=== PATIENT | female | born 1975 | race Caucasian/White ===

== ENCOUNTER 2025-10-26 12:28 | Outpatient (CLI) | payer BC ==
--- NOTE | 2025-10-26 13:42 | RADIOLOGY REPORT ---
CLINICAL INFORMATION: RADICULOPATHY, LUMBAR REGION. TECHNIQUE: Multisequence multiplanar MRI images of the lumbar spine were obtained without contrast. COMPARISON: None INTERPRETATION: Examination is limited due to motion artifact and other artifacts. Increased lumbar lordosis. There is up to 5 mm retrolisthesis of L1 on L2 and 3 mm retrolisthesis of L2 on L3. Vertebral body heights are maintained. Posterior elements appear grossly intact. Stir hyperintense signal in the L1 through L5 vertebral bodies, may be due to a combination of modic type 1 degenerative endplate changes and stress related changes/stress injury. No visualized fracture. Visualized spinal cord and cauda equina are within normal limits. The conus medullaris is appropriate in signal at the L1 level. There is moderate to marked fatty atrophy of the paraspinal musculature in the lumbosacral spine. There are cystic structures in the left ovary measuring up to 1.4 cm. T12-L1: Disc desiccation with moderate disc space narrowing and diffuse disc bulge mildly indenting the ventral aspect of the thecal sac without significant spinal canal stenosis. No significant neural foraminal stenosis. L1-L2: Disc desiccation with severe disc space narrowing. Mild diffuse disc bulge mildly flattening the ventral aspect of the thecal sac. No significant spinal canal stenosis. Facet hypertrophy with mild left neural foraminal stenosis. Small left facet joint effusion also noted. L2-L3: Disc desiccation with moderate to severe disc space narrowing and diffuse disc bulge causing moderate spinal canal stenosis and partial effacement of the lateral recesses. There is congenital spinal canal narrowing contributing to the spinal canal stenosis at this level. Facet hypertrophy with no significant neural foraminal stenosis. L3-L4: Disc desiccation with severe disc space narrowing and diffuse disc bulge superimposed on congenital spinal canal narrowing, contributing to moderate spinal canal stenosis and partial effacement of the lateral recesses. Facet hypertrophy with moderate bilateral neural foraminal stenoses. L4-L5: Disc desiccation with moderate to severe disc space narrowing and diffuse disc bulge with [id number] spinal canal stenosis. There is a degree of congenital spinal canal narrowing contributing to the spinal canal stenosis. Facet hypertrophy with moderate right and mild left neural foraminal stenoses. L5-S1: Disc desiccation. There is mild congenital spinal canal stenosis. No significant disc bulge. No significant neural foraminal stenosis. IMPRESSION: 1. Limited examination due to the reasons described above. 2. Degenerative disc disease and facet disease in the lumbar spine with associated spinal canal, subarticular, and neural foraminal stenoses as described above. 3. Congenital spinal canal narrowing contributes to the spinal canal stenoses. 4. Increased lumbar lordosis with retrolisthesis of L1 on L2 and L2 on L3. 5. Marrow edema throughout the lumbar vertebral bodies, likely due to a combination of modic type 1 endplate changes and stress related changes. No fracture visualized given the limitations of the examination. 6. Additional findings as detailed above.
== END 2025-10-26 23:59 | disposition home or self-care (01) ==
LOC: MRI02 12:28
PROVIDERS: ATTEND Family Medicine
DX: M51.16 Intervertebral disc disorders with radiculopathy, lumbar region (principal); M47.817 Spondylosis without myelopathy or radiculopathy, lumbosacral region; M48.07 Spinal stenosis, lumbosacral region; M51.379 Other intervertebral disc degeneration, lumbosacral region without mention of lumbar back pain or lower extremity pain; M51.15 Intervertebral disc disorders with radiculopathy, thoracolumbar region; M47.25 Other spondylosis with radiculopathy, thoracolumbar region
CPT/HCPCS: 72148